=== PATIENT | male | born 2000 | race Caucasian/White ===

== ENCOUNTER 2019-06-28 08:30 | Emergency (ER) | payer OTHER ==
--- NOTE | 2019-06-28 08:47 | ED Physician Documentation ---
PD HPI HEADACHE - Stated complaint Stated Complaint: HEADACHE/NAUSEA - Chief complaint Chief Complaint: Heent - History obtained from History obtained from: Patient, EMS - History of Present Illness Timing - onset: How many days ago (4) Timing - onset during: Light activity Timing - duration: Days (4) Timing - details: Gradual onset, Still present, Waxing and waning Worst headache ever?: Worst headache ever? (no prior migraines nor similar headaches.) Location: Front Quality: Throbbing, Aching Associated symptoms: Nausea, Vision changes (some blurring left eye at times). No: Fever, Stiff neck, Vomiting, Eye pain Improved by: No: Rest, Meds (given oral Ibuprofen and migraine med yesterday on [facility] without improvement.) Worsened by: Light Contributing factors: No: Hypertension, Recent illness, Trauma Similar symptoms before: Has not had sx before Recently seen: Clinic (yesterday [facility]) Review of Systems Constitutional: denies: Fever, Chills, Myalgias Eyes: reports: Photophobia. denies: Loss of vision Nose: denies: Rhinorrhea / runny nose, Congestion Throat: denies: Sore throat Respiratory: denies: Cough GI: reports: Nausea, Vomiting (couple of times). denies: Abdominal Pain, Diarrhea Skin: denies: Rash, Lesions Neurologic: reports: Generalized weakness, Headache. denies: Focal weakness, Numbness, Confused, Altered mental status, Head injury PD PAST MEDICAL HISTORY - Past Medical History Cardiovascular: None Neuro: None Endocrine/Autoimmune: None - Present Medications Home Medications: Ambulatory Orders Medication Instructions Recorded Confirmed Ondansetron Odt [Zofran] 4 mg TL Q6H PRN #10 tablet 06/28/19 dexAMETHasone [Decadron] 4 mg PO DAILY #5 tablet 06/28/19 - Allergies Allergies/Adverse Reactions: Allergies Allergy/AdvReac Type Severity Reaction Status Date / Time No Known Drug Allergies Allergy Verified 06/28/19 08:45 PD ED PE NORMAL - Vitals Vital signs reviewed: Yes - General General: Alert and oriented X 3, No acute distress, Well developed/nourished - HEENT HEENT: Atraumatic, PERRL (light sensitive), EOMI, Pharynx benign - Neck Neck: Supple, no meningeal sign, No adenopathy - Cardiac Cardiac: RRR, No murmur - Respiratory Respiratory: Clear bilaterally - Abdomen Abdomen: Soft, Non tender - Derm Derm: Normal color, Warm and dry - Extremities Extremities: Normal ROM s pain - Neuro Neuro: Alert and oriented X 3, email specialist 2-12 intact, No motor deficit, No sensory deficit, Normal speech, Other Eye Opening: Spontaneous Motor: Obeys Commands Verbal: Oriented GCS Score: 15 Results - Vitals Vitals: Vital Signs - 24 hr 06/28/19 06/28/19 06/28/19 08:43 09:41 10:18 Temperature 36.8 C Heart Rate 69 65 77 Respiratory 18 15 14 Rate Blood Pressure 136/79 H 109/75 117/69 O2 Saturation 100 100 100 06/28/19 06/28/19 11:14 12:40 Temperature 36.5 C Heart Rate 82 65 Respiratory 16 16 Rate Blood Pressure 125/73 112/68 O2 Saturation 100 99 Oxygen O2 Source Room air - Labs Labs: Laboratory Tests 06/28/19 06/28/19 09:20 09:20 WBC 5.2 RBC 4.78 Hgb 13.9 L Hct 42.1 MCV 88.1 MCH 29.1 MCHC 33.0 RDW 12.4 Plt Count 168 MPV 9.5 Neut # (Auto) 3.8 Lymph # (Auto) 0.6 L [place] # (Auto) 0.6 Eos # (Auto) 0.1 Baso # (Auto) 0.0 Absolute Nucleated RBC 0.00 Nucleated RBC % 0.0 Sodium 138 Potassium 4.3 Chloride 102 Carbon Dioxide 26 Anion Gap 10.0 BUN 19 Creatinine 1.1 Estimated GFR (MDRD) 86 L Glucose 94 Calcium 9.0 Total Bilirubin 0.6 AST 24 ALT 23 Alkaline Phosphatase 75 Total Protein 7.6 Albumin 4.4 Globulin 3.2 Albumin/Globulin Ratio 1.4 Lipase 21 L - Rads (name of study) head CT Radiology: Prelim report reviewed (normal head CT), See rad report PD MEDICAL DECISION MAKING - ED course Complexity details: reviewed results (head CT - no acute process), re-evaluated patient (moderately improved down to 5/10 with migraine directed therapy. Gave small dose pain meds after and now headache about gone. ), considered differential (headache sounds migrainous. No history of migraines though. ), d/w patient Departure - Departure Disposition: 01 Home, Self Care Clinical Impression: Headache Qualifiers: Headache type: unspecified Headache chronicity pattern: acute headache Intractability: not intractable Qualified Code(s): R51 - Headache Migraine Qualifiers: Migraine type: without aura Status migrainosus presence: with status migrainosus Intractability: not intractable Qualified Code(s): G43.001 - Migraine without aura, not intractable, with status migrainosus Condition: Stable Record reviewed to determine appropriate education?: Yes Instructions: ED Headache Migraine Prescriptions: dexAMETHasone [Decadron] 4 mg PO DAILY #5 tablet Ondansetron Odt [Zofran] 4 mg TL Q6H PRN #10 tablet PRN Reason: Nausea / Vomiting Comments: Rest today. Stay well-hydrated. Resume normal activity tomorrow. Continue Decadron steroid daily for 5 more days to prevent recurrence of this headache. It sounds like either a migraine headache or possibly sinus. The Decadron steroid should help with both of those from recurring. Use some ibuprofen or Tylenol if you have some mild headache. If you get a repeat occurrence of a more severe headache in the future, use the migraine medicine along with the ibuprofen you have previously been prescribed. It is more likely to be effective early on in the course of the headache (first half day or so). You can add ondansetron for nausea if needed. Follow-up with your primary care if more frequent subsequent headaches. Discharge Date/Time: 06/28/19 12:50
[2019-06-28] MEDS ORDERED: KETOROLAC 30 MG/ML VIAL IVP STA (09:15)
[2019-06-28] MEDS ORDERED: PROCHLORPERAZINE 10 MG/2 ML VIAL IVP STA (09:15)
[2019-06-28] MEDS ORDERED: diphenhydrAMINE INJ 50 MG/ML VIAL IVP STA (09:15)
[2019-06-28] MEDS ORDERED: DEXAMETHASONE 10 MG/ML VIAL IVP STA (09:15)
[2019-06-28] MEDS ORDERED: SODIUM CHLORIDE 0.9% 1,000 ML IV ONE ×2 (09:15→09:16)
[2019-06-28 09:36] LABS: BASOPHILS % (AUTO) 0.6 %; EOSINOPHILS # (AUTO) 0.1 10^3/uL (0.0-0.7); EOSINOPHILS % (AUTO) 2.3 %; HGB - HEMOGLOBIN 13.9 g/dL (14.0-18.0); LYMPHOCYTES # (AUTO) 0.6 10^3/uL (1.5-3.5); MEAN CORPUSCULAR HEMOGLOBIN 29.1 pg (27.0-31.0); MEAN CORPUSCULAR VOLUME 88.1 fL (80.0-94.0); MEAN PLATELET VOLUME 9.5 fL (7.4-11.4); MONOCYTES # (AUTO) 0.6 10^3/uL (0.0-1.0); MONOCYTES % (AUTO) 10.9 %; NEUTROPHILS # (AUTO) 3.8 10^3/uL (1.5-6.6); PLT - PLATELET COUNT 168 10^3/uL (130-450); RED BLOOD COUNT 4.78 10^6/uL (4.70-6.10); RED CELL DISTRIBUTION WIDTH 12.4 % (12.0-15.0); WHITE BLOOD COUNT 5.2 x10^3/uL (4.8-10.8)
[2019-06-28 10:18] LABS: ALBUMIN 4.4 g/dL (3.2-5.5); ALBUMIN/GLOBULIN RATIO 1.4 (1.0-2.2); BILIRUBIN,TOTAL 0.6 mg/dL (0.2-1.0); CREATININE 1.1 mg/dL (0.6-1.2); TOTAL PROTEIN 7.6 g/dL (6.7-8.2)
[2019-06-28] MEDS ORDERED: HYDROmorphone 1 MG/ML CARPUJECT IVP STA (11:06)
--- NOTE | 2019-06-28 12:22 | CT Report ---
Reason: new onset headache Procedure Date: 06/28/2019 Accession Number: [id number] / [id number] Procedure: CT - HEAD WO CPT Code: Final Report FULL RESULT: EXAM: CT HEAD EXAM DATE: 06/28/2019 11:32 AM. CLINICAL HISTORY: New onset headache. COMPARISON: None. TECHNIQUE: Multiaxial CT images were obtained from the foramen magnum to the vertex. Reformats: Sagittal and coronal. IV contrast: None. In accordance with CT protocol optimization, one or more of the following dose reduction techniques were utilized for this exam: automated exposure control, adjustment of mA and/or KV based on patient size, or use of iterative reconstructive technique. FINDINGS: Parenchyma: No intraparenchymal hemorrhage. No evidence of mass, midline shift, or CT findings of infarction. Lazar-white differentiation is distinct. Extraaxial Spaces: Normal for age. No subdural or epidural collections identified. Ventricles: Normal in size and position. Sinuses and Orbits: Mucosal thickening seen in the ethmoid air cells. Other paranasal sinuses and mastoid air cells are clear. Orbits appear normal. Bones: No evidence of fracture or calvarial defect. Other: None. IMPRESSION: 1. No acute intracranial abnormality. 2. Paranasal sinusitis is seen affecting the ethmoid air cells.. RADIA
[2019-06-28 12:41] VITALS: BP 112/68
== END 2019-06-28 12:50 | disposition home or self-care (01) ==
LOC: ED 08:30
DX: G43.001 Migraine without aura, not intractable, with status migrainosus (principal)
CPT/HCPCS: 36415; 70450; 80053; 83690; 85025; 96361; 96374; 96375; 99284; 99285; J1170; J1200

== ENCOUNTER 2020-04-02 10:32 | Emergency (ER) | payer OTHER ==
--- NOTE | 2020-04-02 11:05 | ED Physician Documentation ---
PD HPI BACK PAIN - Stated complaint Stated Complaint: BACK PX - Chief complaint Chief Complaint: Back Pain - History obtained from History obtained from: Patient - History of Present Illness Timing - onset: How many days ago (2) Timing - details: Abrupt onset, Still present, Waxing and waning Location: Lower Quality: Pain, Spasm, Aching Associated symptoms: No: Fever, Weakness, Numbness Improves with: Rest Worsened by: Movement, Lifting, Twisting Contributing factors: Lifting (lifted tool case 2 days ago and it was stuck under something, so he lurched as he tried to lift it, causing pain in right low back that has persisted with ROM and bending.) Similar symptoms before: Has not had sx before Review of Systems Constitutional: denies: Fever, Chills GI: denies: Abdominal Pain : denies: Dysuria, Hematuria Skin: denies: Rash Musculoskeletal: reports: Back pain Neurologic: denies: Focal weakness, Numbness, Difficulty speaking PD PAST MEDICAL HISTORY - Past Medical History Cardiovascular: None Respiratory: None Neuro: None Endocrine/Autoimmune: None GI: None : None HEENT: None Psych: None Musculoskeletal: None Derm: None - Past Surgical History Past Surgical History: No - Present Medications Home Medications: Ambulatory Orders Medication Instructions Recorded Confirmed Hydrocodone/Acetaminophen 1 each PO Q6H PRN #15 tablet 04/02/20 [Hydrocodone-Acetamin 5-325 mg] Ibuprofen [Motrin] 600 mg PO TID PRN #25 tab 04/02/20 Tizanidine HCl 4 mg PO TID PRN #25 capsule 04/02/20 - Allergies Allergies/Adverse Reactions: Allergies Allergy/AdvReac Type Severity Reaction Status Date / Time No Known Drug Allergies Allergy Verified 04/02/20 10:46 - Social History Does the pt smoke?: No Smoking Status: Never smoker Does the pt drink ETOH?: No Does the pt have substance abuse?: No - Immunizations Immunizations are current?: Yes - POLST Patient has POLST: No PD ED PE NORMAL - Vitals Vital signs reviewed: Yes - General General: Alert and oriented X 3, No acute distress, Well developed/nourished - Back Back: No spinal TTP (tender in lower right paralumbar muscle without rash nor sores. Normal knee reflexes. ) - Derm Derm: Normal color, Warm and dry, No rash - Neuro Neuro: No motor deficit, No sensory deficit Results - Vitals Vitals: Oxygen O2 Source Room air PD MEDICAL DECISION MAKING - ED course Complexity details: considered differential, d/w patient Departure - Departure Disposition: 01 Home, Self Care Clinical Impression: Acute lumbar myofascial strain Qualifiers: Encounter type: initial encounter Qualified Code(s): S39.012A - Strain of muscle, fascia and tendon of lower back, initial encounter Condition: Stable Record reviewed to determine appropriate education?: Yes Instructions: ED Sprain Strain Lumbar Follow-Up: [facility] [Provider Group] Prescriptions: Hydrocodone/Acetaminophen [Hydrocodone-Acetamin 5-325 mg] 1 each PO Q6H PRN #15 tablet PRN Reason: Pain Ibuprofen [Motrin] 600 mg PO TID PRN #25 tab PRN Reason: Pain Tizanidine HCl 4 mg PO TID PRN #25 capsule PRN Reason: Spasms Comments: Gentle stretching for the low back. Off duty ([employer]) for 3 days due to acute low back strain. Gentle stretching during that time and heat to the area to provide loosening of the muscles. Continue ibuprofen 3 times a day with food. To that add tizanidine muscle relaxant 3 or 4 times a day for stiffness. To that add Tylenol 4 times a day or hydrocodone if needed for worse pain. [place] 3 [place] for reevaluation. Forms: Activity restrictions Discharge Date/Time: 04/02/20 12:05
[2020-04-02 11:12] VITALS: BP 140/55
[2020-04-02] MEDS ORDERED: methocarbamoL 500 MG TABLET PO STA (11:24)
[2020-04-02] MEDS ORDERED: CHERRY SYRUP 10 ML UDC PO ONE (11:24)
[2020-04-02] MEDS ORDERED: KETOROLAC 30 MG/ML VIAL IM STA (11:24)
[2020-04-02] MEDS ORDERED: ACETAMINOPHEN 325 MG TABLET PO STA (11:24)
[2020-04-02] MEDS ORDERED: DEXAMETHASONE 10 MG/ML VIAL PO STA (11:24)
== END 2020-04-02 12:05 | disposition home or self-care (01) ==
LOC: ED 10:32
DX: S39.012A Strain of muscle, fascia and tendon of lower back, initial encounter (principal); X50.0XXA Overexertion from strenuous movement or load, initial encounter; Y93.89 Activity, other specified
CPT/HCPCS: 96372; 99283; A9270